=== PATIENT | male | born 1995 | race Caucasian/White ===

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

== ENCOUNTER 2017-01-06 13:49 | Emergency (ER) | payer BC ==
--- NOTE | 2017-01-06 14:33 | EDM.PDOC ---
ED HPI GENERAL MEDICAL PROBLEM - General Chief Complaint: Chest Pain Stated Complaint: FAST HEARTBEAT/CHEST PAIN Time Seen by Provider: 01/06/17 14:10 Source of Information: Reports: Patient History Limitations: Reports: No Limitations - History of Present Illness INITIAL COMMENTS - FREE TEXT/NARRATIVE: 21-year-old male presents for evaluation treatment of chest palpitations and discomfort. Reports that he has been working nights. States that he woke up around 1300 today with pounding in his chest and discomfort. He reports associated shortness of breath, dizziness and nausea. No syncope or vomiting. Reports episode lasted about 10-15 minutes and resolved on its own without any intervention. He does not currently have any chest discomfort, shortness of breath or symptoms since coming to the ER. Patient reports that this has been occurring for the last year and a half. States he gets about one episode that lasts about 10-15 minutes every 3-4 days. Reports that he was seen by [facility] [place]. Was diagnosed with anxiety. No treatment was given. He has not had a Holter monitors or event monitor in the past. He states he normally gets about one episode every 3-4 days. Reports it last 10-15 minutes and resolved without any intervention. He has never seen cardiology for this. Chest Pain Score (Numeric/FACES): 5 - Related Data Allergies Allergy/AdvReac Type Severity Reaction Status Date / Time No Known Allergies Allergy Verified 11/28/16 00:33 CDT Home Meds: Home Meds . [No Known Home Meds] 09/28/16 [History] Past Medical History - Past Health History Medical/Surgical History: Denies Medical/Surgical History HEENT History: Reports: None Cardiovascular History: Reports: None Respiratory History: Reports: Bronchitis, Recurrent Gastrointestinal History: Reports: None Genitourinary History: Reports: None Musculoskeletal History: Reports: None Neurological History: Reports: None Psychiatric History: Reports: None Endocrine/Metabolic History: Reports: None - Infectious Disease History Infectious Disease History: Reports: None - Past Surgical History HEENT Surgical History: Reports: Oral Surgery Male Surgical History: Reports: None Social & Family History - Family History Family Medical History: Noncontributory - Tobacco Use Smoking Status *Q: Current Every Day Smoker Years of Tobacco use: 3 Packs/Tins Daily: 0.5 - Caffeine Use Caffeine Use: Reports: Soda - Recreational Drug Use Recreational Drug Use: No ED ROS GENERAL - Review of Systems Review Of Systems: See Below Constitutional: Denies: Fever Respiratory: Reports: Shortness of Breath (none currently). Denies: Cough Cardiovascular: Reports: Chest Pain (none currently), Lightheadedness (none currently), Palpitations (none currently). Denies: Syncope GI/Abdominal: Reports: Nausea (non currently). Denies: Abdominal Pain, Vomiting Neurological: Reports: Dizziness. Denies: Syncope ED EXAM, GENERAL - Physical Exam Exam: See Below Exam Limited By: No Limitations General Appearance: Alert, WD/WN, No Apparent Distress Ears: Normal External Exam Nose: Normal Inspection Throat/Mouth: Normal Inspection, Normal Lips, Normal Voice, No Airway Compromise Respiratory/Chest: No Respiratory Distress, Lungs Clear, Normal Breath Sounds Cardiovascular: Normal Peripheral Pulses, Regular Rate, Rhythm, No Murmur GI/Abdominal: Normal Bowel Sounds, Soft, Non-Tender Neurological: Alert, Oriented, Normal Cognition Psychiatric: Normal Affect, Normal Mood Skin Exam: Warm, Dry, Normal Color EKG INTERPRETATION EKG Date: 01/06/17 Time: 14:30 Rhythm: NSR (96) Rate (Beats/Min): 96 [place]: Normal P-Wave: Present QRS: RBBB (incomplete) ST-T: Normal QT: Normal EKG Interpretation Comments: NSR at 96 bpm. Incomplete RBBB pattern with abnormal repolarization pattern V2. Reviewed by myself and Dr. Valladares. Course - Vital Signs Last Recorded V/S: Last Vital Signs Temp 36.2 C 01/06/17 13:59 Pulse 103 H 01/06/17 13:59 Resp 19 01/06/17 13:59 BP 144/91 H 01/06/17 13:59 Pulse Ox 97 01/06/17 13:59 - Orders/Labs/Meds Orders: Active Orders 24 hr Category Date Time Status Cardiac Monitoring [RC] . DIRECTED Care 01/06/17 14:22 Active EKG Documentation Completion [RC] ASDIRECTED Care 01/06/17 14:17 Active Event Monitor [RC] .PRN Care 01/06/17 15:52 Ordered EKG 12 Lead [EK] Stat Ther 01/06/17 14:17 Ordered Labs: Laboratory Tests 01/06/17 01/06/17 Range/Units 14:35 14:35 WBC 8.95 (4.23-9.07) K/mm3 RBC 5.45 (4.63-6.08) M/mm3 Hgb 16.2 (13.7-17.5) gm/L Hct 45.2 (40.1-51.0) % MCV 82.9 (79.0-92.2) fl MCH 29.7 (25.7-32.2) pg MCHC 35.8 H (32.2-35.5) g/dl RDW Std Deviation 39.6 (35.1-43.9) fL Plt Count 255 (163-337) K/mm3 MPV 10.3 (9.4-12.3) fl Neut % (Auto) 66.3 (34.0-67.9) % Lymph % (Auto) 22.0 (21.8-53.1) % Bent % (Auto) 9.7 (5.3-12.2) % Eos % (Auto) 1.6 (0.8-7.0) Baso % (Auto) 0.2 (0.1-1.2) % Neut # (Auto) 5.93 H (1.78-5.38) K/mm3 Lymph # (Auto) 1.97 (1.32-3.57) K/mm3 Bent # (Auto) 0.87 H (0.30-0.82) K/mm3 Eos # (Auto) 0.14 (0.04-0.54) K/mm3 Baso # (Auto) 0.02 (0.01-0.08) K/mm3 Sodium 142 (136-145) mEq/L Potassium 3.8 (3.5-5.1) mEq/L Chloride 106 (98-107) mEq/L Carbon Dioxide 25 (21-32) mEq/L Anion Gap 14.8 (5-15) BUN 9 (7-18) mg/dL Creatinine 0.9 (0.7-1.3) mg/dL Est Cr Clr Drug Dosing 144.90 mL/min Estimated GFR (MDRD) > 60 (>60) mL/min BUN/Creatinine Ratio 10.0 L (14-18) Glucose 101 (74-106) mg/dL Calcium 9.3 (8.5-10.1) mg/dL Magnesium 1.9 (1.8-2.4) mg/dl Total Bilirubin 0.6 (0.2-1.0) mg/dL AST 24 (15-37) U/L ALT 57 (16-63) U/L Alkaline Phosphatase 66 (46-116) U/L C-Reactive Protein < 0.2 (<1.0) mg/dL Total Protein 7.5 (6.4-8.2) g/dl Albumin 3.8 (3.4-5.0) g/dl Globulin 3.7 gm/dL Albumin/Globulin Ratio 1.0 (1-2) TSH 3rd Generation 1.446 (0.516-4.13) uIU/mL - Radiology Interpretation Free Text/Narrative:: chest xray [address] Macdonald: Nothing acute is identified on two- view chest x-ray. - Re-Assessments/Exams Free Text/Narrative Re-Assessment/Exam: 01/06/17 15:51 I reviewed the ekg, chest xray and labs with the patient. Will have him do an event monitor. Nursing staff notified me tjat he reported that he had a "twinge" of discomfort on the left side earlier. This lasted for maybe one second and resolved on its own. Nothing was identified on the monitor. Patient has been on the court monitor during his ER stay. No abnormalities were found. Will discharge home at this time. Discharge instructions as documented. Departure - Departure Time of Disposition: 15:51 Disposition: Home, Self-Care 01 Condition: Fair Clinical Impression: Intermittent palpitations Referrals: PCP,None [Primary Care Provider] - Reid Jay [Physician] - Forms: ED Department Discharge, ED Return to Work/School Form Additional Instructions: event monitor as directed. Follow-up with family medicine for these results once event monitor is completed. Recommend Dr. Jovel. Please call [phone] to schedule with him. note given for work Please return to the ER if your symptoms change or worsen. - My Orders Last 24 Hours: My Active Orders 01/06/17 14:17 EKG Documentation Completion [RC] ASDIRECTED EKG 12 Lead [EK] Stat 01/06/17 14:22 Cardiac Monitoring [RC] . DIRECTED 01/06/17 15:52 Event Monitor [RC] .PRN - Assessment/Plan Last 24 Hours: My Active Orders 01/06/17 14:17 EKG Documentation Completion [RC] ASDIRECTED EKG 12 Lead [EK] Stat 01/06/17 14:22 Cardiac Monitoring [RC] . DIRECTED 01/06/17 15:52 Event Monitor [RC] .PRN
--- NOTE | 2017-01-06 15:42 | CR ---
Chest: Two views of the chest were obtained. Comparison: Previous chest x-ray of 09/28/16. Heart size and mediastinum are normal. Lungs are clear. Bony structures are within normal limits for the patient's age. Impression: 1. Nothing acute is identified on two-view chest x-ray. Diagnostic code #1
[2017-01-06 16:18] VITALS: BP 129/70
== END 2017-01-06 16:05 | disposition home or self-care (01) ==
LOC: JD.ED 13:49
DX: R00.2 Palpitations (principal)
CPT/HCPCS: 36415; 71020; 71020-26; 80053; 83735; 84443; 85025; 86140; 93005; 93010; 93270; 93271; 99284-25; 99285-25